=== PATIENT | male | born 1940 | race Caucasian/White ===

== ENCOUNTER 2017-02-13 11:22 | Emergency (ER) | payer MEDICARE ==
[~2017-02-13] VITALS: Ht 170.2 cm; Wt 80.0 kg
[2017-02-13 11:36] VITALS: BP 132/74; PULSE 65; RESP 16; O2SAT 95
--- NOTE | 2017-02-13 11:40 | ED.REPORT ---
HPI-Back Pain 40 and Over Date of Service Feb 13, 2017 ED Provider: Ericka Albrecht History of Present Illness: lower spine pain can't stand up. flat in bed for 2 days. no injury. mowed the lawn the other day with a riding [employer] chair. Was standing on the foreign languages [employer] chair and was jostled going down an incline. lives between [facility] and [facility]. pain now between and 1 pain occurs when sitting up. no vomiting. primary care is in [facility], does not know the name Nursing Notes Stated Complaint: LOW BACK PAIN Nursing Notes Reviewed: Yes Allergies: Coded Allergies: Penicillins (Verified Adverse Reaction, Unknown, 02/13/17) "I just don't want penicillin" General Time Seen by MD: 11:39 Chief Complaint Back pain Hx Obtained From: Patient Sudden in Onset?: No Onset Occurred: 2 days ago Symptom Duration: Since onset Caused by: Spontaneous/no mechanism Location: : Perispinal lumbar Past Medical History Past Medical History seasonal allergies Denies: Asthma Past Surgical History bladder surgery when his bladder plugged up per his report Smoking History Former Smoker Social History Alcohol Use: Denies alcohol use Drug Use: Denies drug use Occupation lives with son in [facility] and daughter in [facility] 02/13/2017 Ambulatory Status Independent Review of Systems Basic Review of Systems Eyes: Vision NL, No discharge Skin: No bruising, No rash, No itch Psychiatric: Normal thought content Physical Exam Initial Vital Signs Vital Signs (First) Date Time Temp Pulse Resp B/P Pulse Ox O2 Delivery O2 Flow Rate FiO2 02/13/17 11:36 36.9 65 16 132/74 95 Room Air Initial VS: Reviewed, Vital signs normal Head / Eyes: Atraumatic, Normocephalic, PERRL ENT: Mucous membranes moist, Conjunctiva normal, No scleral icterus Neck: Supple, Non-tender, Full range of motion Lymphatic: No lymphadenopathy Extremities: Vascular intact, Neuro intact, No swelling, No tenderness Skin: Warm, Dry, No cyanosis Psychiatric: Mood/affect normal, Behavior normal, Normal thought content General/Constitutional: Awake, Alert, No acute distress, Well appearing, Well developed, Well hydrated, Well nourished, Cooperative, Not toxic appearing Respiratory / Chest: Atraumatic, Breath sounds NL, Breath sounds = bilat, No respiratory distress Cardiovascular: Heart rate NL, Regular rhythm, Heart sounds NL, No gallop Abdomen: Atraumatic, Soft, Non-tender, McBurney's non-tender Back: Atraumatic, Inspection NL pain with sitting up, initially refusing to stand Neurologic: Oriented X3, Speech NL, No motor deficits Lower Extremity / Pelvis / MS: Atraumatic, Inspection NL, Full range of motion , No swelling Interpretation & Diagnostics Lab Results Interpretation Result Diagram: 02/13/17 1204 02/13/17 1204 Test 02/13/17 12:04 02/13/17 12:10 02/13/17 15:25 White Blood Count 12.1th/mm3 (3.8-10.1) Red Blood Count 5.21mil/mm3 (4.40-5.80) Hemoglobin 15.5g/dL (13.8-17.2) Hematocrit 45.0% (41.0-50.0) Mean Corpuscular Volume 86.4fL (81-100) Mean Corpuscular Hemoglobin 29.8pg (27.0-35.0) Mean Corpuscular Hemoglobin Concent 34.4% (32.0-37.0) Red Cell Distribution Width 14.4% (12.3-15.4) Platelet Count 244bil/L (150-400) Neutrophils (%) (Auto) 74.6% (40-74) Lymphocytes (%) (Auto) 17.1% (14-46) Monocytes (%) (Auto) 7.5% (4-12) Eosinophils (%) (Auto) 0.4% (0-5) Basophils (%) (Auto) 0.2% (0-3) Sodium Level 141mEq/L (134-144) Potassium Level 4.6mEq/L (3.5-5.2) Chloride Level 103mEq/L (97-108) Carbon Dioxide Level 21mmol/L (18-29) Blood Urea Nitrogen 16mg/dL (8-27) Creatinine 0.75mg/dL (0.76-1.27) Estimat Glomerular Filtration Rate 107mL/min (>59) Glucose Level 104mg/dL (60-99) Calcium Level 10.0mg/dL (8.5-10.1) Total Bilirubin 1.4mg/dL (0.0-1.2) Aspartate Amino Transf (AST/SGOT) 20U/L (0-50) Alanine Aminotransferase (ALT/SGPT) 12U/L (0-44) Alkaline Phosphatase 64U/L (25-160) Total Protein 7.6g/dL (6.4-8.4) Albumin 4.2g/dL (3.4-5.0) Lactic Acid Level 1.0mmol/L (0.4-2.0) Urine Color Yellow (YELLOW) Urine Appearance Clear (CLEAR,HAZY) Urine pH 5.0 (5.0-8.0) Urine Specific [place] 1.028 (1.003-1.035) Urine Protein Tracemg/dL (NEG,TRACE) Urine Glucose (UA) Negativemg/dL (NEGATIVE) Urine Ketones 80mg/dL (NEGATIVE) Urine Occult Blood Negative (NEGATIVE) Urine Nitrite Negative (NEGATIVE) Urine Bilirubin Negative (NEGATIVE) Urine Urobilinogen Normalmg/dL (NORMAL) Urine Leukocyte Esterase Negative (NEGATIVE) Urine RBC 0-2/hpf (0-2) Urine WBC 0-5/hpf (0-5) Urine Epithelial Cells Few/hpf (NONE-MOD) Urine Crystals None seen (NONE SEEN) Urine Bacteria Few/hpf (NONE-FEW) Urine Hyaline Casts None/lpf (NONE) Urine Granular Casts None seen (NONE SEEN) Urine Waxy Casts None seen (NONE SEEN) Urine Red Blood Cell Casts None seen (NONE SEEN) Urine White Blood Cell Casts None seen (NONE SEEN) Urine Mucus Present (None Seen) Urine Trichomonas None seen (NONE SEEN) Urine Yeast None (NONE SEEN) Urinalysis Comment None Urine Culture Reflexed Not indicated Lab Results Interpretation: urine is negative X-Ray Interpretation Xray Interpretation: PROCEDURE: X-RAY LUMBAR SPINE, 2 OR 3 VIEW INDICATIONS: back pain ? compression fx TECHNIQUE: 3 views of the lumbar spine were acquired. COMPARISON: None. FINDINGS: Bones: There are 5 lumbar-type vertebral bodies. The lowest intervertebral disk space is designated as L5-S1. The vertebral body heights are well-maintained without evidence to suggest an acute compression fracture. The bone mineralization appears decreased. Moderate multilevel degenerative changes of the lumbar spine are primarily evident involving the mid to lower lumbar facet joints, most pronounced at L5-S1. There is mild disc height loss at L5-S1. Scattered anterior disc osteophyte complexes are present. Soft tissues: There is aortic atherosclerosis. Otherwise, the soft tissues of the imaged abdomen and pelvis are within normal limits. IMPRESSION: 1. Moderate degenerative changes of the lumbar spine are more prominent involving the lower lumbar facet joints. 2. Osteopenia without acute compression fracture. Dictated by: Teofilo Erickson M.D. on 02/13/2017 at 12:58 Approved by: Teofilo Erickson M.D. on 02/13/2017 at 12:59 Re-Eval/Medical Decision Med Decision/Clinical Course 76 year male presents by ambulance to the ER for evualation of back pain. Started after mowing the lawn and was jostled while going down an incline on a riding [employer] chair. No sign of bowel obstruction or urinary obstruction. X-ray does show osteopenia but no compression fracture. Patient is able to get up, walk and sit up after 1 hydrocodone. discussed the importance of movement. No sign of epidural abscess Discharge & Departure Impression: Primary Impression: Low back pain Chronicity: acute Disposition: Home Patient Instructions: Low Back Strain (ED) Additional Instructions: Your labs are looking good. The x-ray does not show any sign of a compression fracture. Do not do the riding foreign languages [employer] chair any more. The bouncing up and down can cause a compression fracture. Movement is so important.Try to do gentle walking. The longer you stay in bed, the longer it will take till you are back to normal. Use hydrocodone 1 up to 2 times a day. Also ibuprofen 400 mg in the am and pm for 5 days. Please follow with primary care. Referrals: [facility] EDSupervising Provider for APC: Jeramy Pichardo MD copies to: [facility] Ericka Albrecht Feb 13, 2017 11:40
[2017-02-13] MEDS ORDERED: HYDROcodone-APAP 5-325 mg Tablet PO ONE (12:00)
[2017-02-13 12:08] LABS: BASOPHILS % (AUTO) 0.2 % (0-3); EOSINOPHILS % (AUTO) 0.4 % (0-5); MONOCYTES % (AUTO) 7.5 % (4-12); Mean Corpuscular Hemoglobin 29.8 pg (27.0-35.0); Mean Corpuscular Volume 86.4 fL (81-100); NEUTROPHILS % (AUTO) 74.6 % (40-74); Platelet Count 244 bil/L (150-400)
--- NOTE | 2017-02-13 13:01 | DRSVH ---
PROCEDURE: X-RAY LUMBAR SPINE, 2 OR 3 VIEW INDICATIONS: back pain ? compression fx TECHNIQUE: 3 views of the lumbar spine were acquired. COMPARISON: None. FINDINGS: Bones: There are 5 lumbar-type vertebral bodies. The lowest intervertebral disk space is designated a s L5-S1. The vertebral body heights are well-maintained without evidence to suggest an acute compress ion fracture. The bone mineralization appears decreased. Moderate multilevel degenerative changes of the lumbar spine are primarily evident involving the mid to lower lumbar facet joints, most pronounced at L5-S1. There is mild disc height loss at L5-S1. Sc attered anterior disc osteophyte complexes are present. Soft tissues: There is aortic atherosclerosis. Otherwise, the soft tissues of the imaged abdomen and pelvis are within normal limits. IMPRESSION: 1. Moderate degenerative changes of the lumbar spine are more prominent involving the lower lumbar f acet joints. 2. Osteopenia without acute compression fracture. Dictated by: Teofilo Erickson M.D. on 02/13/2017 at 12:58 Approved by: Teofilo Erickson M.D. on 02/13/2017 at 12:59
[2017-02-13 15:43] LABS: APPEARANCE,URINE CLEAR (CLEAR,HAZY); COLOR,URINE YELLOW (YELLOW)
[2017-02-13 15:44] VITALS: BP 133/66; PULSE 78; RESP 12
[2017-02-13 15:44] LABS: OCCULT BLOOD,URINE NEGATIVE (NEGATIVE); UROBILINOGEN,URINE NORMAL (NORMAL)
== END 2017-02-13 15:47 | disposition home or self-care (01) ==
LOC: SED 11:22 → EDUNIT# 11:22 → EDBD 11:22 → SED 15:47
DX: M54.5 Low back pain (principal); X58.XXXA Exposure to other specified factors, initial encounter; Y93.H9 Activity, other involving exterior property and land maintenance, building and construction; Y92.096 Garden or yard of other non-institutional residence as the place of occurrence of the external cause; Y99.8 Other external cause status; Z87.891 Personal history of nicotine dependence; Z88.0 Allergy status to penicillin